=== PATIENT | female | born 1930 | race Caucasian/White ===

== ENCOUNTER 2018-03-27 20:59 | Inpatient (IN) ==
[2018-03-29 13:54] VITALS: PULSE 83
[2018-03-29 17:27] VITALS: BP 141/63; RESP 18; TEMP 98.2; O2SAT 92
== END 2018-03-29 18:00 | disposition home or self-care (01) ==
LOC: PHED 20:59 → PHEDA 03-28 01:19 → PHEDH 03-28 05:19 → PH3 03-28 08:35
PROVIDERS: ADMIT Internal Medicine; ATTEND Internal Medicine